=== PATIENT | male | born 1970 | race Caucasian/White ===

== ENCOUNTER → 2025-04-10 09:23 | Outpatient (REF) | payer OTHER, SELFPAY | LOC: HWRAD 09:23 | PROVIDERS: ATTENDING PHYSICIAN Internal Medicine | DX: R14.0 Abdominal distension (gaseous) (principal); R63.5 Abnormal weight gain; I10 Essential (primary) hypertension; R20.0 Anesthesia of skin | CPT/HCPCS: 70450; 76700 ==

== ENCOUNTER → 2025-04-23 13:41 | Outpatient (REF) | payer OTHER, SELFPAY | LOC: EMG 13:41 | PROVIDERS: ATTENDING PHYSICIAN Internal Medicine | DX: R20.0 Anesthesia of skin (principal) | CPT/HCPCS: 95886; 95911 ==

== ENCOUNTER → 2025-09-15 09:22 | Outpatient (REF) | payer OTHER, SELFPAY | LOC: PAVMRI 09:22 | PROVIDERS: ATTENDING PHYSICIAN Internal Medicine | DX: R20.0 Anesthesia of skin (principal) | CPT/HCPCS: 70551 ==